=== PATIENT | female | born 1975 | race Hispanic/Latino ===

== ENCOUNTER 2017-07-27 09:36 | Inpatient (IN) | payer BC ==
[~2017-07-27] VITALS: Ht 152.4 cm; Wt 88.9 kg
[2017-07-27] MEDS ORDERED: TAMSULOSIN HCL 0.4 MG CAP.ER.24H ONE (09:55)
[2017-07-27] MEDS ORDERED: KETOROLAC TROMETHAMINE 30MG/ML ONE (09:56)
[2017-07-27] MEDS ORDERED: ONDANSETRON HCL 4 MG/2 ML VIAL ONE (10:25)
[2017-07-27 10:39] LABS: BASOPHILS % (AUTO) 0.5 % (0.0-5.0); EOSINOPHILS % (AUTO) 0.2 % (0.0-8.0); HEMATOCRIT 34.4 % (36-48); LYMPHOCYTES % (AUTO) 14.5 % (21.0-51.0); MEAN CORPUSCULAR HEMOGLOBIN 27.1 pg (27.0-33.0); MEAN CORPUSCULAR HGB CONC 33.9 g/dL (32.0-36.0); MEAN CORPUSCULAR VOLUME 80.1 fL (79-99); MONOCYTES % (AUTO) 8.6 % (3.0-13.0); NEUTROPHILS % (AUTO) 76.2 % (40.0-77.0); PLATELET COUNT (AUTO) 304 K/uL (130-400); RED BLOOD CELL COUNT(AUTO) 4.29 MIL/uL (4.00-5.50); RED CELL DISTRIBUTION WIDTH 14.9 % (11.0-15.5); WHITE BLOOD COUNT (AUTO) 8.1 K/uL (4.8-10.8)
[2017-07-27 10:41] LABS: CREATININE 1.2 mg/dL (0.5-1.5); POTASSIUM 3.7 mmol/L (3.5-5.1)
[2017-07-27 10:44] LABS: INR 0.99 (0.85-1.15); PARTIAL THROMBOPLASTIN TIME 27.4 SEC (26.3-35.5); PROTHROMBIN TIME 10.4 SEC (9.6-11.6)
[2017-07-27 10:45] LABS: ALBUMIN 2.9 g/dL (3.5-5.0); BILIRUBIN,TOTAL 0.3 mg/dL (0.2-1.0); TOTAL PROTEIN, SERUM 7.9 g/dL (6.0-8.3)
[2017-07-27] MEDS ORDERED: SODIUM CHLORIDE 0.9% 1000ML 1,000 ML IV ONE ×2 (13:45→15:59)
[2017-07-27 14:37] LABS: APPEARANCE,URINE Cloudy (CLEAR); BILIRUBIN,URINE Negative (NEGATIVE); COLOR,URINE Yellow (YELLOW); GLUCOSE, URINE (UA) Negative (NEGATIVE); KETONES,URINE 40 mg/dL (NEGATIVE); LEUKOCYTE ESTERASE ,URINE Large (NEGATIVE); NITRATE,URINE Negative (NEGATIVE); OCCULT BLOOD,URINE Moderate (NEGATIVE); PH,URINE 5.5 (5.0-8.0); PROTEIN,URINE POS 2+ (NEGATIVE)
[2017-07-27 14:40] LABS: HCG,QUAL RESULT NEGATIVE (NEGATIVE)
[2017-07-27 14:48] LABS: BACTERIA,URINE Few /HPF (None Seen); WBC,URINE >100 /HPF (0-1)
[2017-07-27 14:49] LABS: SQUAMOUS EPITHELIAL CELL,UR 0-2 /HPF (0-2)
[2017-07-27 14:58] VITALS: BP 132/76
[2017-07-27] MEDS ORDERED: CEPH500B PO (16:14)
[2017-07-27 16:16] VITALS: BP 110/63
[2017-07-27] MEDS ORDERED: MORPHINE SULFATE 4 MG/1ML SYG IVP PRN (17:15)
[2017-07-27] MEDS: SODIUM CHLORIDE 0.9% 1000ML 1,000 ML IV SCH (17:15)
[2017-07-27] MEDS ORDERED: ONDANSETRON HCL 4 MG/2 ML VIAL IVP PRN (18:45)
[2017-07-27] MEDS ORDERED: CEFTRIAXONE 1GM/D5W 50ML 50 ML IV ONE (20:00)
[2017-07-27 20:10] VITALS: BP 129/79
[2017-07-27] MEDS: FAMOTIDINE/PF 20 MG/2 ML VIAL IV SCH (21:02)
[2017-07-27 23:50] VITALS: BP 129/71
[2017-07-28] VITALS (18 sets, daily range): BP systolic 97–138; BP diastolic 52–83
[2017-07-28] MEDS: SODIUM CHLORIDE 0.9% 1000ML 1,000 ML IV SCH (01:56)
[2017-07-28] MEDS: FAMOTIDINE/PF 20 MG/2 ML VIAL IV SCH (08:55)
[2017-07-28] MEDS ORDERED: LACTATED RINGERS 1000ML 1,000 ML IV ONE (11:52)
[2017-07-28] MEDS: CEFTRIAXONE SODIUM 1 GM IVP PRN ×2 (12:08→13:20)
[2017-07-28] MEDS ORDERED: ONDANSETRON HCL 4 MG/2 ML VIAL ONE (12:40)
[2017-07-28] MEDS ORDERED: LIDOCAINE PF 2% 5ML ABBOJECT ONE (12:40)
[2017-07-28] MEDS ORDERED: GLYCOPYRROLATE 0.2 MG/ML 5 ML VIAL ONE (12:40)
[2017-07-28] MEDS ORDERED: DEXAMETHASONE SOD PHOSPHATE 10MG/ML 1ML VIAL ONE (12:40)
[2017-07-28] MEDS ORDERED: PROPOFOL 10 MG/ML 20ML VIAL IV ONE (12:41)
[2017-07-28] MEDS ORDERED: MIDAZOLAM HCL 1 MG/ML 2ML VIAL ONE (12:41)
[2017-07-28] MEDS ORDERED: FENTANYL CITRATE PF 50 MCG/1 ML 2ML VIAL ONE (12:41)
[2017-07-28] MEDS ORDERED: ISOVUE-370 50ML VIAL IV ONE (12:47)
[2017-07-28] MEDS ORDERED: AMOX-429 PO (13:03)
[2017-07-28] MEDS ORDERED: OPIUM/BELLADONNA ALKALOIDS 1 EACH SUPP.RECT RC ONE (15:00)
[2017-07-28] MEDS ORDERED: PHENAZOPYRIDINE HCL 200 MG TABLET PO SCH (15:45)
== END 2017-07-28 19:05 | disposition home or self-care (01) | DRG 669 ==
LOC: EDH 09:36 → EDHIP 13:00 → 4BH 14:17 → WSH 19:05
PROVIDERS: ADMIT Family Medicine; ATTEND Family Medicine
PROC: BT1D1ZZ Fluoroscopy of Right Kidney, Ureter and Bladder using Low Osmolar Contrast (ICD-10-PCS; 2017-07-28)
PROC: 0T778DZ Dilation of Left Ureter with Intraluminal Device, Via Natural or Artificial Opening Endoscopic (ICD-10-PCS; principal; 2017-07-28 13:20)
PROC: 0TC78ZZ Extirpation of Matter from Left Ureter, Via Natural or Artificial Opening Endoscopic (ICD-10-PCS; 2017-07-28 13:20)
PROC: 0T768DZ Dilation of Right Ureter with Intraluminal Device, Via Natural or Artificial Opening Endoscopic (ICD-10-PCS; 2017-07-28 13:20)
DX: N13.2 Hydronephrosis with renal and ureteral calculous obstruction (principal); Z82.49 Family history of ischemic heart disease and other diseases of the circulatory system; E66.9 Obesity, unspecified; Z68.38 Body mass index [BMI] 38.0-38.9, adult
CPT/HCPCS: 36415; 74420; 80053; 81001; 81025; 82360; 83690; 85025; 85610; 85730; 88300; A4218; A4344; C1758; C1769; C2617; J0696; J1100; J1885; J2001; J2250; J2270; J2405; J2704; J3010; J3490; J7030; J7120; Q9967